=== PATIENT | female | born 1965 | race Caucasian/White ===

== ENCOUNTER 2020-12-08 18:08 | Outpatient (REF) | payer OTHER, SELFPAY ==
[2020-12-08 21:25] LABS: Abs Immature Grans 0.04 10^3/uL (0.0-0.06); Absolute Basophil Count 0.08 10^3/uL (0.0-0.2); Absolute Eosinophil Count 0.25 10^3/uL (0.0-0.7); Absolute Lymphocyte Count 3.17 10^3/uL (1.2-3.4); Absolute Monocyte Count 0.81 10^3/uL (0.1-0.8); Absolute Neutrophil Count 2.62 10^3/uL (1.2-6.7); Basophils % 1.1; Eosinophils % 3.6; HCT 42.6 % (36.0-46.0); HGB 14.3 g/dL (11.2-15.7); Immature Grans % 0.6; Lymphocytes % 45.5; MCH 31.6 pg (27.0-33.0); MCHC 33.6 % (32.0-36.0); MPV 10.1 fL (8.0-11.0); Monocytes % 11.6; Neutrophils % 37.6; Nucleated RBC 0 %; Platelet Count 326 10^3/uL (130-400); RBC 4.53 10^6/uL (3.93-5.22); RDW-SD 41.9 fL; WBC 6.97 10^3/uL (4.4-10.8)
[2020-12-08 21:54] LABS: TSH (W/Ref FT4) 2.12 uIU/mL (0.36-3.74)
== END 2020-12-08 18:09 | disposition home or self-care (01) ==
LOC: NCHCN 18:08
PROVIDERS: Visit Provider Nurse Practitioner Community Health
DX: R19.7 Diarrhea, unspecified (principal)
CPT/HCPCS: 84443; 85025